=== PATIENT | female | born 1945 | race African-American/Black ===

== ENCOUNTER 2020-05-30 10:03 | Outpatient (REF) | payer OTHER, SELFPAY ==
--- NOTE | 2020-05-30 16:00 | MHC.AU.P13 ---
Adult Audiological Evaluation Date of Visit: 05/30/20 Reason for Appointment: Audiological evaluation due to concern for decreased hearing. Ms. Lewis has a known bilateral sensorineural hearing loss. She reports that she is not hearing as well with the hearing aids. Change in medical history includes pacemaker placement in September 2019. Previous Hearing Test Results: [facility] [place], 11/01/2018- Mild sloping to moderate sensorineural hearing loss bilaterally. Ear History: History of Ear Wax Buildup: Both Ears Medical History: Medical History: High Blood Pressure Medical History: High cholesterol, anemia, borderline diabetic, Pacemaker placed September 2019 Hearing Instrument History- Right Ear: Milled Rice Broker: imagine Model: Oz Sonotek B50-M Serial Number: [id number] Battery Size: 312 Repair Warranty: 05/01/2021 Loss and Damage Warranty: 05/01/2021 Dispensed By: [facility] Date of Fittin02/09/2018 Hearing Instrument History- Left Ear: Milled Rice Broker: imagine Model: 5app0-M Serial Number: [id number] Battery Size: 312 Warranty: 05/01/2021 Loss and Damage Warranty: 05/01/2021 Dispensed By: [facility] Date of Fittin02/09/2018 Otoscopy: Right Ear: Complete occluded w/ wax. Removed w/ lighted curette & suction w/o incident Left Ear: Complete occluded w/ wax. Removed w/ lighted curette w/o incident Tympanometry: Tympanometry performed due to: To determine if cerumen blockage is fully occluding canal(s) Right Ear: Normal Middle Ear System (Type A) Left Ear: Normal Middle Ear System (Type A) Hearing Evaluation: Transducer(s) Used: Insert Earphones, Bone Conduction Method: Conventional Audiometry Stimuli Used: Pure Tones Right Ear: Description of Hearing: Normal hearing from 250-500 Hz, sloping to a mild to moderate sensorineural hearing loss from 8012-9735 Hz. Left Ear: Description of Hearing: Normal hearing from 250-500 Hz, sloping to a mild to moderate sensorineural hearing loss from 1629-6331 Hz. Speech Recognition Threshold (SRT): Method Used: Monitored Live Voice Stimuli Used: Spondee Words Right Ear: 25 dBHL Left Ear: 25 dBHL Word Discrimination: Method: Recorded Lists Word Lists Used: NU-6 Right Ear: 100% at 70 dBHL Left Ear: 100% at 70 dBHL Comparison: Compared to the most recent evaluation: Hearing is stable. Recommendations: Audiological re-evaluation in one year. Hearing aid maintenance performed today. Recommend routine ear wax removal every six months either here, by her PCP, or by an ENT physician due to significant wax impaction indicated today. Can also use ear wax removal drops (i.e. EarWax M.D., Debrox) monthly to help prevent wax build-up. Diagnosis: Primary Diagnosis: H90.3 Bilateral Sensorineural Hearing Loss Services Performed: Comprehensive Audiological Evaluation (CPT 07241) Tympanometry (CPT 77582) Signature: Provider: Bipin Potts, CCC-A
--- NOTE | 2020-06-03 08:49 | MHC.AU.P13 ---
Adult Audiological Evaluation Date of Visit: 06/03/20 Reason for Appointment: Audiological evaluation due to concern for decreased hearing. Ms. Lewis has a known bilateral sensorineural hearing loss. She reports that she is not hearing as well with the hearing aids. Change in medical history includes pacemaker placement in September 2019. Previous Hearing Test Results: [facility] [place], 11/01/2018- Mild sloping to moderate sensorineural hearing loss bilaterally. Ear History: History of Ear Wax Buildup: Both Ears Medical History: Medical History: High Blood Pressure Medical History: High cholesterol, anemia, borderline diabetic, Pacemaker placed September 2019 Hearing Instrument History- Right Ear: Toll Gate Tender: [employer] Model: Expreem B50-M Serial Number: [id number] Battery Size: 312 Repair Warranty: 05/01/2021 Loss and Damage Warranty: 05/01/2021 Dispensed By: [facility] Date of Fittin02/09/2018 Hearing Instrument History- Left Ear: Toll Gate Tender: [employer] Model: EventVue0-M Serial Number: [id number] Battery Size: 312 Warranty: 05/01/2021 Loss and Damage Warranty: 05/01/2021 Dispensed By: [facility] Date of Fittin02/09/2018 Otoscopy: Right Ear: Complete occluded w/ wax. Removed w/ lighted curette & suction w/o incident Left Ear: Complete occluded w/ wax. Removed w/ lighted curette w/o incident Tympanometry: Tympanometry performed due to: To determine if cerumen blockage is fully occluding canal(s) Right Ear: Normal Middle Ear System (Type A) Left Ear: Normal Middle Ear System (Type A) Hearing Evaluation: Transducer(s) Used: Insert Earphones, Bone Conduction Method: Conventional Audiometry Stimuli Used: Pure Tones Right Ear: Description of Hearing: Normal hearing from 250-500 Hz, sloping to a mild to moderate sensorineural hearing loss from 8420-2576 Hz. Left Ear: Description of Hearing: Normal hearing from 250-500 Hz, sloping to a mild to moderate sensorineural hearing loss from 3224-6986 Hz. Speech Recognition Threshold (SRT): Method Used: Monitored Live Voice Stimuli Used: Spondee Words Right Ear: 25 dBHL Left Ear: 25 dBHL Word Discrimination: Method: Recorded Lists Word Lists Used: NU-6 Right Ear: 100% at 70 dBHL Left Ear: 100% at 70 dBHL Comparison: Compared to the most recent evaluation: Hearing is stable. Recommendations: Audiological re-evaluation in one year. Hearing aid maintenance performed today. Recommend routine ear wax removal every six months either here, by her PCP, or by an ENT physician due to significant wax impaction indicated today. Can also use ear wax removal drops (i.e. EarWax M.D., Debrox) monthly to help prevent wax build-up. Diagnosis: Primary Diagnosis: H90.3 Bilateral Sensorineural Hearing Loss Services Performed: Comprehensive Audiological Evaluation (CPT 05288) Tympanometry (CPT 76864) Signature: Provider: Bipin Potts, CCC-A
== END 2020-05-30 10:04 | disposition home or self-care (01) ==
LOC: HO.SH 10:03
PROVIDERS: Visit Provider Internal Medicine
DX: H90.3 Sensorineural hearing loss, bilateral (principal)
CPT/HCPCS: 92557; 92567

== ENCOUNTER 2020-05-30 11:10 | Outpatient (REF) | payer SELFPAY | END 2020-05-30 11:11 | disposition home or self-care (01) | LOC: HO.HAP 11:10 | PROVIDERS: Visit Provider Internal Medicine | DX: Z46.1 Encounter for fitting and adjustment of hearing aid (principal) | CPT/HCPCS: 92700; V5266 ==

== ENCOUNTER 2021-07-06 12:34 | Outpatient (REF) | payer OTHER, SELFPAY ==
--- NOTE | 2021-07-06 14:17 | MHC.AU.AHA ---
Adult Audiological Evaluation Date of Visit: 07/06/21 Reason for Appointment: Audiological re-evaluation to determine if there has been a change in Heavenly's hearing. She has a known bilateral, sensorineural hearing loss and uses hearing aids binaurally. She feels that her hearing is gradually decreasing. She denies any changes to her medical history since her last visit. Previous Hearing Test Results: [facility] [place], 05/30/2020- Normal low-frequency hearing sloping to a mild to moderate sensorineural hearing loss bilaterally. Ear History: History of Ear Wax Buildup: Both Ears Medical History: Medical History: High Blood Pressure Medical History: High cholesterol, anemia, borderline diabetic, Pacemaker placed September 2019 Medication List: List not provided Hearing Instrument History- Right Ear: Budget Assistant: [employer] Model: Axial Healthcare0-M Serial Number: [id number] Battery Size: 312 Repair Warranty: 05/01/2021 Loss and Damage Warranty: 05/01/2021 Dispensed By: [facility] Date of Fittin02/09/2018 Hearing Instrument History- Left Ear: Budget Assistant: [employer] Model: Axial Healthcare0-M Serial Number: [id number] Battery Size: 312 Warranty: 05/01/2021 Loss and Damage Warranty: 05/01/2021 Dispensed By: [facility] Date of Fittin02/09/2018 Otoscopy: Right Ear: Cerumen impaction removed without incident with a lighted curette Left Ear: Cerumen impaction removed without incident with a lighted curette Tympanometry: Tympanometry performed due to: To determine if cerumen blockage is fully occluding canal(s) Right Ear: Normal Middle Ear System (Type A) Left Ear: Normal Middle Ear System (Type A) Hearing Evaluation: Transducer(s) Used: Insert Earphones, Bone Conduction Method: Conventional Audiometry Stimuli Used: Pure Tones Right Ear: Description of Hearing: Normal hearing 250-500 Hz, sloping to a mild to moderately-severe sensorineural hearing loss from 9621-2802 Hz. Left Ear: Description of Hearing: Mild hearing loss at 250, rising to normal hearing at 500 Hz, then sloping to a mild to moderately-severe sensorineural hearing loss from 9192-8623 Hz. Speech Recognition Threshold (SRT): Method Used: Monitored Live Voice Stimuli Used: Spondee Words Right Ear: 30 dBHL Left Ear: 30 dBHL Word Discrimination: Method: Recorded Lists Word Lists Used: NU-6 Right Ear: 92% at 70 dBHL Left Ear: 96% at 70 dBHL Comparison: Compared to the most recent evaluation: Hearing is stable. Recommendations: Audiological re-evaluation in one year. Hearing aid maintenance performed today. Hearing aid(s) reprogrammed with updated test results. Recommend consistent use of hearing aids. Recommend routine ear wax removal every six months either at our clinic, by her PCP, or by an ENT physician due to significant wax impaction indicated today (and at her previous visit in 2020). She may also use earwax softening drops (i.e. EarWax M.D., Debrox) on a monthly basis to help prevent further build-up. Diagnosis: Primary Diagnosis: H90.3 Bilateral Sensorineural Hearing Loss Secondary Diagnosis: H61.23 Impacted Cerumen, Bilateral Services Performed: Comprehensive Audiological Evaluation (CPT 65820) Tympanometry (CPT 73651) Signature: Provider: Bipin Potts, CCC-A
== END 2021-07-06 12:35 | disposition home or self-care (01) ==
LOC: HO.SH 12:34
PROVIDERS: Visit Provider Internal Medicine
DX: H91.93 Unspecified hearing loss, bilateral (principal)
CPT/HCPCS: 92557; 92567

== ENCOUNTER 2021-07-06 16:55 | Outpatient (REF) | payer SELFPAY | END 2021-07-06 16:56 | disposition home or self-care (01) | LOC: HO.HAP 16:55 | PROVIDERS: Visit Provider Internal Medicine | DX: Z46.1 Encounter for fitting and adjustment of hearing aid (principal); H90.3 Sensorineural hearing loss, bilateral; H61.23 Impacted cerumen, bilateral | CPT/HCPCS: 92700 ==